=== PATIENT | female | born 1985 | race Caucasian/White ===

== ENCOUNTER 2016-11-01 18:55 | Emergency (ER) | payer OTHER ==
[2016-11-01 19:05] VITALS: BP 120/86; BMI 21.7
--- NOTE | 2016-11-01 19:30 | DR.GENAD ---
HPI - PCP Primary Care Physician: MARGARETH - HPI Comment HPI Comment: HISTORY BELOW. - Complaint/Symptoms Chief Complaint Doctors Comments: DYSURIA. LOWER ABDOMINAL PAIN. TOOK LEFT OVER ANTIBIOTICS TODAY. NO FEVER. SYMTOMS SIMILAR TO WHEN PATIENT HAD UTI. Chief Complaint:: PT C/O URINARY FREQ AND PAINFUL URINATION PT STATES" MY FEMALE ORGANS HURT WELL. I GET UTI'S FREQUENTLY" - Nurses notes reviewed Nurses Notes Review: Yes - Source History Provided: Patient - Mode of Arrival Mode of Arrival: Ambulatory - Timing Onset of Chief Complaint: 11/01/16 Came on: Suddenly - Duration Duration: Constant Duration: Days - Severity Severity: Moderate PMH - PMH Past Medical History: Yes Past Medical History: Anxiety Past Surgical History: No - Family History History of Family Medical Conditions: Yes Family Medical History: Diabetes Mellitus, Coronary Artery Disease, Heart Failure, Hypertension - Social History Does any household member use tobacco: No Alcohol Use: Occasionally Do you use any recreational Drugs:: No Lives With: Family Lives Where: Home - infectious screening In the last 2 months have you had wt loss of >10#?: NO Have you had fever, night sweats or hemotysis?: No Have you traveled outside the country in the last 6 months?: No Isolation: Standard ROS - Review of Systems Constitutional: No Symptoms Reported Eyes: No Symptoms Reported ENTM: No Symptoms Reported Respiratoy: No Symptoms Reported Cardiovascular: No Symptoms Reported Genitourinary: Dysuria, Frequency Neurological: No Symptoms Reported Musculoskeletal: No Symptoms Reported Integumentary: No Symptoms Reported Hematologic/Lymphatic: No Symptoms Reported Endocrine: No Symptoms Reported All Other Systems: Reviewed and Negative PE - Vital Signs Vitals: Temperature 98.8 F Pulse Rate 94 Respiratory Rate 18 Blood Pressure 120/86 O2 Sat by Pulse Oximetry 98 - General Limitations: No Limitations General Appearance: Alert - Head Head Exam: Normal Inspection - Eyes Eye exam: Normal Appearance - ENT ENT Exam: Normal External Ear Exam External Ear Exam: Normal External Inspection Nose Exam: Normal Nose Exam Mouth Exam: Normal Inspection Throat Exam: Normal Inspection - Neck Neck Exam: Trachea Midline - Chest Chest Inspection: Normal Inspection - Respiratory Respiratory Exam: Normal Lung Sounds Bilat Respiratory Exam: Bilateral Clear to Auscultation - Cardiovascular Cardiovascular Exam: Regular Rate, Normal Rhythm, Normal Heart Sounds - Abdominal Exam Abdominal Exam: Normal Bowel Sounds, Soft, Tenderness Abdominal Tenderness: RLQ, LLQ, Suprapubic - Extremities Extremities Exam: Normal Inspection - Back Back Exam: Normal Inspection - Neurologic Neurological Exam: Alert, Oriented X3 - Psychiatric Psychiatric Exam: Normal Affect, Normal Mood - Skin Skin Exam: Normal Color MDM - Additional Information Additional Information Obtained From: Family - Differential Diagnosis Differential Diagnosis: UTI, LOWER ABDOMINAL PAIN Course - Treatment Treatment: SEE ORDERS - Education/Counseling Education/Counseling: Patient, Education Educated On: Treatment, Diagnosis, Needs for Follow Up ROR - Labs Reviewed Laboratory Results Reviewed?: Yes Laboratory: Specimen Type Clean catch urine 11/01/16 19:33 Urine Color Yellow (YELLOW) 11/01/16 19:33 Urine Appearance Clear (CLEAR) 11/01/16 19:33 Urine pH 5.0 (5.0 - 8.0) 11/01/16 19:33 Ur Specific [place] 1.025 (1.000-1.030) 11/01/16 19:33 Urine Protein Negative (NEGATIVE) 11/01/16 19:33 Urine Glucose (UA) Negative (NEGATIVE) 11/01/16 19:33 Urine Ketones Negative (NEGATIVE) 11/01/16 19:33 Urine Occult Blood 1+ (NEGATIVE) 11/01/16 19:33 Urine Nitrite Negative (NEGATIVE) 11/01/16 19:33 Urine Bilirubin Negative (NEGATIVE) 11/01/16 19:33 Urine Urobilinogen Normal (NORMAL) 11/01/16 19:33 Ur Leukocyte Esterase 1+ (NEGATIVE) 11/01/16 19:33 Urine RBC Rare /HPF (NEGATIVE) 11/01/16 19:33 Urine WBC 0-1 /HPF (NEGATIVE) 11/01/16 19:33 Ur Squamous Epith Cells Few /HPF (NEGATIVE) 11/01/16 19:33 Urine Bacteria Negative /HPF (NEGATIVE) 11/01/16 19:33 Ur Culture Indicated? No/not indicated 11/01/16 19:33 - Diagnosis Discharge Problem: Dysuria, Lower abdominal pain UTI (urinary tract infection) Qualifiers: Urinary tract infection type: urethritis Qualified Code(s): N34.2 - Other urethritis - Discharge Plan Disposition: 01 HOME, SELF-CARE Condition: Stable Prescriptions: Doxycycline (Monohydrate) [Doxycycline Monohydrate] 100 mg PO BID #20 cap - Follow ups/Referrals Follow ups/Referrals: NFD,None [Primary Care Provider] - 1 day - Instructions Instructions: Dysuria, Abdominal Pain, Adult, [id number] Additional Instructions: RETURN TO ED IF WORSE. FOLLOW UP WITH DR. ZULUAGA IN AM.
[2016-11-01 20:03] LABS: BILIRUBIN,URINE NEGATIVE (NEGATIVE); BLOOD/HEMOGLOBIN,URINE 1+ (NEGATIVE); GLUCOSE, URINE NEGATIVE (NEGATIVE); KETONES,URINE NEGATIVE (NEGATIVE); LEUKOCYTE ESTERASE ,URINE 1+ (NEGATIVE); NITRITES,URINE NEGATIVE (NEGATIVE); PROTEIN,URINE NEGATIVE (NEGATIVE); UROBILINOGEN,URINE NORMAL (NORMAL)
[2016-11-01 20:22] LABS: APPEARANCE,URINE CLEAR (CLEAR); BACTERIA,URINE NEGATIVE /HPF (NEGATIVE); COLOR,URINE YELLOW (YELLOW); RBC,URINE RARE /HPF (NEGATIVE); SQUAMOUS EPITHELIAL CELL,UR FEW /HPF (NEGATIVE)
[2016-11-01] MEDS ORDERED: VIBRAMYCIN PO ONE (20:59)
[2016-11-01] MEDS: VIBRAMYCIN PO ONE (21:01)
== END 2016-11-01 21:03 | disposition home or self-care (01) ==
LOC: ER 18:55
DX: R30.0 Dysuria (principal); N34.2 Other urethritis; R10.84 Generalized abdominal pain
CPT/HCPCS: 81001; 99282; 99283